=== PATIENT | female | born 1950 | race African-American/Black ===

== ENCOUNTER 2025-04-23 10:50 | Emergency (ER) | payer OTHER ==
[~2025-04-23] VITALS: Ht 165.1 cm; Wt 137.0 kg
[~2025-04-23 10:50] MED LIST: AMLO5TAB88 MT; ATOR-2 MT; HYDR25TA MT; LISI40TA21 MT; METF-416 MT
[2025-04-23 10:54] VITALS: O2SAT 0
[2025-04-23 11:10] VITALS: BP 0/0; PULSE 0; RESP 0; TEMP 37; O2SAT 0
== END 2025-04-23 11:10 ==
LOC: ER 10:50
DX: I46.9 Cardiac arrest, cause unspecified (principal); E11.9 Type 2 diabetes mellitus without complications; I10 Essential (primary) hypertension; Z79.84 Long term (current) use of oral hypoglycemic drugs; Z79.899 Other long term (current) drug therapy
CPT/HCPCS: 31500; 82962; 92950; 99285